=== PATIENT | male | born 1935 | race Caucasian/White ===

== ENCOUNTER 2019-01-20 05:26 | Day surgery (SDC) | payer MEDICARE ==
[2019-01-19 11:46] LABS: BASOPHILS % (AUTO) 0.6 % (0-1); EOSINOPHILS # (AUTO) 0.1 X10'3 (0-0.9); EOSINOPHILS % (AUTO) 1.3 % (0-6); HEMATOCRIT 39.7 % (42.0-52.0); HEMOGLOBIN 12.9 g/dl (14.0-17.9); LYMPHOCYTES # (AUTO) 0.9 X10'3 (1.1-4.8); LYMPHOCYTES % (AUTO) 16.7 % (21-51); MEAN CORPUSCULAR HEMOGLOBIN 29.4 PG (27.0-31.0); MEAN CORPUSCULAR HGB CONC 32.4 g/dL (33.0-36.5); MEAN CORPUSCULAR VOLUME 90.7 FL (78-98); MEAN PLATELET VOLUME 8.6 FL (7.4-10.4); MONOCYTES # (AUTO) 0.5 X10'3 (0-0.9); MONOCYTES % (AUTO) 9.7 % (2-12); NEUTROPHILS # (AUTO) 3.7 X10'3 (1.8-7.7); NEUTROPHILS % (AUTO) 71.7 % (42-75); PLATELET COUNT 153 X10'3 (140-440); RED BLOOD COUNT 4.38 X10'6 (4.70-6.10); RED CELL DISTRIBUTION WIDTH 13.9 % (11.5-14.5); WHITE BLOOD COUNT 5.1 X10'3 (4.5-11.0)
[2019-01-19 11:55] LABS: ALBUMIN 3.6 G/DL (3.4-5.0); ANION GAP 7 (8-16); BLOOD UREA NITROGEN 20 MG/DL (7-18); BUN/CREATININE RATIO 19.2 (5.4-32.0); CALCIUM 9.3 MG/DL (8.5-10.1); CHLORIDE 109 MMOL/L (99-107); CREATININE 1.04 MG/DL (0.60-1.10); GLUCOSE 92 MG/DL (70-104); POTASSIUM 4.2 MMOL/L (3.5-5.1); SODIUM 144 MMOL/L (135-145); TOTAL CARBON DIOXIDE 28.1 MMOL/L (24-32); eGFR 68 ML/MIN
[2019-01-19 12:08] LABS: INR 1.1 INR; PARTIAL THROMBOPLASTIN TIME 29 SECONDS (22-32); PROTHROMBIN TIME 11.4 SECONDS (9.0-12.0)
[2019-01-20] VITALS (12 sets, daily range): BP systolic 112–167; BP diastolic 51–83
[~2019-01-20] VITALS: Ht 188 cm; Wt 98.0 kg
[~2019-01-20 05:26] MED LIST: DABI150C PO; FLO0.4C PO; LOSA50TA3 PO; PANT40TA4 PO; SIMV80TA2 PO; SOTA80TA PO
[2019-01-20] MEDS ORDERED: LORazepam 0.5 MG tablet PO PRN (05:45)
[2019-01-20] MEDS ORDERED: normal saline 1,000 ML IV SCH (05:45)
[2019-01-20] MEDS ORDERED: diphenhydrAMINE 25mg capsule PO PRN (05:45)
[2019-01-20] MEDS ORDERED: CLOP75TA15 PO (06:14)
[2019-01-20] MEDS ORDERED: FINA5TAB11 PO (06:14)
[2019-01-20] MEDS ORDERED: iohexol 350MG/ML 100ml bottle IV ONE ×2 (07:21→07:41)
[2019-01-20] MEDS ORDERED: fentaNYL/PF 50MCG/1 ML 2ML syringe ONE (07:21)
[2019-01-20] MEDS ORDERED: LIDOcaine 1% (10mg/ml)w/preservative injection 20ml MDV ONE (07:21)
[2019-01-20] MEDS ORDERED: midazolam 2 mg/2 ml injection ONE (07:21)
--- NOTE | 2019-01-20 08:34 | NUR ---
pt ate 100% of breakfast tray, drank 100% of 250ml apple juice
[2019-01-20] MEDS ORDERED: OXAZEpam 15mg capsule PO PRN (08:35)
[2019-01-20] MEDS ORDERED: HYDROcodone/acetaminophen 5mg/325mg tablet PO PRN (08:35)
[2019-01-20] MEDS ORDERED: proCHLORperazine 10 MG/2 ml inj IV PRN (08:35)
[2019-01-20] MEDS ORDERED: HYDROcodone/acetaminophen 10/325mg tab PO PRN (08:35)
[2019-01-20] MEDS ORDERED: ondansetron/PF 4mg/2ml inj IV PRN (08:35)
== END 2019-01-20 12:35 | disposition home or self-care (01) ==
LOC: SSTAY O 05:26
PROVIDERS: ATTEND Internal Medicine Interventional Cardiology
DX: I25.10 Atherosclerotic heart disease of native coronary artery without angina pectoris (principal); I10 Essential (primary) hypertension; G47.33 Obstructive sleep apnea (adult) (pediatric); I48.91 Unspecified atrial fibrillation; Z86.73 Personal history of transient ischemic attack (TIA), and cerebral infarction without residual deficits
CPT/HCPCS: 36415; 80048; 85025; 85610; 85730; 93459; 99152; A6257; J1644; J2001; J2250; J3010; J7030; Q0163; Q9967; 90662; A4620; C1769